=== PATIENT | female | born 1975 | race Caucasian/White ===

== ENCOUNTER 2020-06-21 21:52 | Inpatient (IN) | payer OTHER ==
[~2020-06-21] VITALS: Ht 154.9 cm; Wt 78.0 kg
[2020-06-21 23:14] LABS: HEMOGLOBIN 14.4 gm/dl (12.3-15.3); RED BLOOD COUNT 4.25 M/UL (4.00-5.10); WHITE BLOOD COUNT 15.7 K/UL (4.5-11.0)
[2020-06-21 23:27] LABS: BUN/CREATININE RATIO 22 (0-10)
[2020-06-23 04:32] LABS: HEMOGLOBIN 12.8 gm/dl (12.3-15.3); WHITE BLOOD COUNT 17.4 K/UL (4.5-11.0)
[2020-06-23 04:34] LABS: RED BLOOD COUNT 3.8 M/UL (4.00-5.10)
[2020-06-23 05:08] LABS: BUN/CREATININE RATIO 17 (0-10)
[2020-06-24 05:15] LABS: HEMOGLOBIN 11.8 gm/dl (12.3-15.3); RED BLOOD COUNT 3.58 M/UL (4.00-5.10); WHITE BLOOD COUNT 14.1 K/UL (4.5-11.0)
[2020-06-24 05:36] LABS: BUN/CREATININE RATIO 11 (0-10)
[2020-06-25 05:22] LABS: HEMOGLOBIN 11.5 gm/dl (12.3-15.3); RED BLOOD COUNT 3.64 M/UL (4.00-5.10); WHITE BLOOD COUNT 13.8 K/UL (4.5-11.0)
[2020-06-25 05:37] LABS: BUN/CREATININE RATIO 8 (0-10)
--- NOTE | 2020-06-25 12:52 | NUR ---
1235- PATIENT BACK FROM OR. VITAL SIGNS STABLE. NO DISTRESS NOTED.
[2020-06-26 05:35] LABS: HEMOGLOBIN 10.7 gm/dl (12.3-15.3); RED BLOOD COUNT 3.33 M/UL (4.00-5.10); WHITE BLOOD COUNT 11.9 K/UL (4.5-11.0)
[2020-06-26 05:56] LABS: BUN/CREATININE RATIO 17 (0-10)
--- NOTE | 2020-06-27 01:28 | NUR ---
PT C/O OF PAIN AT IV SITE. SITE FREE OF REDNESS OR S/SX OF INFILTRATION. D/C'D IV ACCESS. PT REFUSED FURTHER IV ACCESS TO BE OBTAINED. EDUCTATED PT OF NEED TO HAVE IV ACCESS SO SHE COULD GET IV ANTIBIOTICS AND ASSOCIATED RISKS OF NOT RECIEVING ANTIBIOTCS. PT STILL REFUSED. NOTIFIED DR OSEGUERA. RECIEVED NO NEW ORDERS. WILL CONTINUE TO MONITOR.
--- NOTE | 2020-06-27 05:27 | NUR ---
NOTIFIED DR OSEGUERA THAT PT WOULD NOT ALLOW LAB TO PERFORM BLOOD DRAW TO COLLECT MORNING BLOOD WORK. RECIEVED NO NEW ORDERS. WILL CONTINUE TO MONITOR.
[2020-06-27 09:20] LABS: HEMOGLOBIN 11.7 gm/dl (12.3-15.3); RED BLOOD COUNT 3.58 M/UL (4.00-5.10); WHITE BLOOD COUNT 9.6 K/UL (4.5-11.0)
[2020-06-27 09:47] LABS: BUN/CREATININE RATIO 18 (0-10)
[2020-06-27] MEDS ORDERED: HYDROCODON-ACE1 EAC4 PO (12:13)
[2020-06-27] MEDS ORDERED: BACTRIM DS TAB1 EACH PO (12:13)
--- NOTE | 2020-06-27 13:45 | NUR ---
0800- PATIENT CONTINUES TO REFUSE IV ACCESS AT THIS TIME. EDUCATED ON THE NEED FOR ANTIBIOTIC THERAPY. CONTINUES TO REFUSE.
--- NOTE | 2020-06-27 13:46 | NUR ---
0920- PATIENT CONTINUES TO REFUSE IV ACCESS. AWARE. PATIENT STATED WOULD LET US START NEW IV LATER TODAY.
== END 2020-06-27 15:54 | disposition home or self-care (01) | DRG 854 ==
LOC: ER1 21:52 → CDU 06-22 01:16 → MED SURG 4 06-22 01:16
PROVIDERS: Family Medicine; Internal Medicine; Surgery; ADMIT Internal Medicine
PROC: 0K9P0ZZ Drainage of Left Hip Muscle, Open Approach (ICD-10-PCS; principal; 2020-06-25 10:00)
DX: A41.9 Sepsis, unspecified organism (principal); L03.317 Cellulitis of buttock; L02.31 Cutaneous abscess of buttock; M60.08 Infective myositis, other site; R00.1 Bradycardia, unspecified; N76.2 Acute vulvitis; R00.0 Tachycardia, unspecified; Z80.8 Family history of malignant neoplasm of other organs or systems; F17.210 Nicotine dependence, cigarettes, uncomplicated; D72.829 Elevated white blood cell count, unspecified; G47.33 Obstructive sleep apnea (adult) (pediatric); D64.9 Anemia, unspecified; Z20.822 Contact with and (suspected) exposure to COVID-19; E03.9 Hypothyroidism, unspecified
CPT/HCPCS: 0240U; 36415; 71045; 72193; 80048; 80053; 80202; 81001; 83605; 84439; 84443; 85025; 85027; 86140; 87040; 87070; 87086; 87205; 93005; 94760; 96365; 96375; 99285; J0295; J1100; J1650; J1885; J2001; J2250; J2405; J2543; J2704; J3010; J3370; J7030; J7070; J7120; Q9967; U0002

== ENCOUNTER → 2020-07-26 | Outpatient (CLI) | payer OTHER ==
[~2020-07-26] MED LIST: BACTRIM DS TAB1 EACH PO; HYDROCODON-ACE1 EAC4 PO
== END ==
LOC: LAB 14:45
DX: E02 Subclinical iodine-deficiency hypothyroidism (principal)
CPT/HCPCS: 36415; 84439; 84443